=== PATIENT | male | born 1970 | race Caucasian/White ===

== ENCOUNTER 2017-06-24 01:56 | Emergency (ER) | payer MEDICAID ==
[~2017-06-24] VITALS: Ht 188 cm; Wt 110.5 kg
[2017-06-24] MEDS ORDERED: SODIUM CHLORIDE 0.9% 1,000 ML IV ONE ×2 (02:15→03:15)
[2017-06-24 02:25] LABS: BASOPHILS # (AUTO) 0.05 K/uL (0.00-0.20); BASOPHILS % (AUTO) 0.3 % (0.0-2.0); EOSINOPHILS # (AUTO) 0.02 K/uL (0.00-0.70); HEMOGLOBIN 18.7 g/dL (13.5-17.5); LYMPHOCYTES # (AUTO) 1.6 K/uL (1.0-4.8); LYMPHOCYTES % (AUTO) 9.8 % (22.0-44.0); MEAN CORPUSCULAR HEMOGLOBIN 30.3 pg (26.0-34.0); MEAN CORPUSCULAR HGB CONC 33.6 G/dL (31.0-37.0); MEAN CORPUSCULAR VOLUME 90 fL (80-100); MONOCYTES # (AUTO) 0.2 K/uL (0.1-1.0); MONOCYTES % (AUTO) 0.9 % (2.0-9.0); NEUTROPHILS # (AUTO) 14.3 K/uL (1.8-7.7); PLATELET COUNT (AUTO) 311 K/uL (150-450); RED CELL DISTRIBUTION WIDTH 12.8 % (11.5-14.5); WHITE BLOOD COUNT (AUTO) 16.1 K/uL (4.5-11.0)
[2017-06-24] MEDS ORDERED: LORazepam 2 MG/ML VIAL ONE (02:26)
[2017-06-24 02:27] LABS: HEMATOCRIT 55.7 % (41-53); NEUTROPHILS % (AUTO) 88.9 % (40.0-70.0)
[2017-06-24 02:28] LABS: ABG A-A DIFF O2 549.6 mmHg (10-20.0); ABG BASE EXCESS -4.7 mmol/L (-2.0-3.0); ABG HCO3 22.7 mmol/L (22.0-26.0); ABG PCO2 26 mmHg (35-45); ABG PH 7.477 (7.35-7.450); ALLEN TEST, BLOOD GAS Positive; TEMPERATURE, FAHRENHEIT, BG 98.6 FAHREN (96.0-98.6)
[2017-06-24 02:30] LABS: ANION GAP 13 mmol/L (8-16); CALCIUM, TOTAL 8.9 mg/dL (8.8-10.5); CARBON DIOXIDE 26 mmol/L (22-29); CHLORIDE 100 mmol/L (98-107); CREATININE 1.24 mg/dL (0.60-1.30); GLOMERULAR FILTR. RATE CALC > 60 mL/min (>60); POTASSIUM 3.9 mmol/L (3.5-5.1); SODIUM SERUM 139 mmol/L (136-145); UREA NITROGEN, BLOOD 12 mg/dL (7-18)
[2017-06-24 02:30] LABS: APPEARANCE,URINE CLOUDY (CLEAR); GLUCOSE, URINE (UA) >=1000 mg/dL (NEGATIVE); KETONES,URINE 15 mg/dL (NEGATIVE); LEUKOCYTE ESTERASE ,URINE NEGATIVE (NEGATIVE); OCCULT BLOOD,URINE LARGE (NEGATIVE); PROTEIN,URINE SEE CONFIRM (NEGATIVE)
[2017-06-24] MEDS ORDERED: LORazepam 2 MG/ML VIAL IVP ONE ×2 (02:30→03:45)
[2017-06-24 02:32] LABS: ADD UA MICROSCOPIC YES
[2017-06-24 02:35] LABS: AMMONIA 43 umol/L (11-32)
[2017-06-24 02:37] LABS: TROPONIN I < 0.02 ng/mL (0.00-0.05)
[2017-06-24 02:45] LABS: B-TYPE NATRIURETIC PEPTIDE 40 pg/mL (0-100)
[2017-06-24] MEDS ORDERED: RAPID SEQUENCE KIT [RSI] 1 EACH KIT ONE ×2 (02:49)
[2017-06-24] MEDS ORDERED: SUCCINYLCHOLINE CHLORIDE 20 MG/ML 10 ML VIAL ONE (02:50)
[2017-06-24 02:54] LABS: AMORPHOUS SEDIMENT,UR Moderate /LPF (None Seen); RBC,URINE 0-2 /HPF (0-2); SULFOSALICYLIC ACID,URINE 3+ (Negative); WBC,URINE 0-2 /HPF (0-5)
[2017-06-24 02:54] LABS: ALANINE AMINOTRANSFERASE 69 U/L (12-78); ALBUMIN 4.2 g/dL (3.4-5.0); ASPARTATE AMINOTRANSFERASE 43 U/L (15-37); BILIRUBIN,TOTAL 0.8 mg/dL (0.1-1.0); CREATINE KINASE MB 4.4 ng/mL (0-5); CREATINE KINASE, TOTAL 520 U/L (39-308); TOTAL PROTEIN, SERUM 8.4 g/dL (6.4-8.2)
[2017-06-24] MEDS ORDERED: ETOMIDATE 2 MG/ML 10 ML VIAL IVP ONE ×2 (03:15→12:00)
[2017-06-24] MEDS ORDERED: SUCCINYLCHOLINE CHLORIDE 20 MG/ML 10 ML VIAL IVP ONE ×2 (03:15→12:00)
[2017-06-24] MEDS: PROPOFOL 1000 MG/ISO-OSM 100 ML IV PRN ×2 (03:16→07:01)
[2017-06-24 03:21] LABS: INR 0.9 (0.9-1.1)
[2017-06-24] MEDS ORDERED: LevETIRAcetam 1,000 MG in DEXTROSE 5%-WATER 100 ML IV ONE ×5 (03:45→05:15)
[2017-06-24] MEDS ORDERED: HydrALAZINE HCL 20 MG/ML VIAL IVP ONE (03:45)
[2017-06-24] MEDS ORDERED: NICARDipine 20 MG/DEXT,ISO-OSM 200 ML IV PRN (05:12)
[2017-06-24] MEDS ORDERED: SODIUM CHLORIDE 3% 500 ML IV ONE (05:15)
[2017-06-24] MEDS ORDERED: SODIUM CHLORIDE 3% 500 ML IV SCH (05:30)
[2017-06-24 07:01] VITALS: BP 130/62
== END 2017-06-24 07:25 | disposition short-term general hospital (02) ==
LOC: EDBD 01:59 → EMS 01:59
DX: I62.9 Nontraumatic intracranial hemorrhage, unspecified (principal); R40.4 Transient alteration of awareness; F15.10 Other stimulant abuse, uncomplicated; I10 Essential (primary) hypertension; F11.90 Opioid use, unspecified, uncomplicated; J45.909 Unspecified asthma, uncomplicated
CPT/HCPCS: 31500; 36415; 51702; 70450; 71010; 80053; 80307; 81001; 82140; 82550; 82553; 82805; 83880; 84484; 85025; 85610; 85730; 93005; 96361; 96365; 96366; 96367; 96374; 96375; 96376; 99291; J0330; J0360; J0712; J2060; J2704; J3490; J7030; J7060; Z7610; 94002